=== PATIENT | male | born 1960 | race Caucasian/White ===

== ENCOUNTER 2021-07-13 04:15 | Outpatient (CLI) | payer MEDICAID, SELFPAY | END 2021-07-13 04:16 | disposition home or self-care (01) | LOC: RT 04:15 | PROVIDERS: PCP Physician Assistant Medical; Visit Provider Physician Assistant Medical | DX: R06.00 Dyspnea, unspecified (principal); Z57.2 Occupational exposure to dust; E66.9 Obesity, unspecified; J44.9 Chronic obstructive pulmonary disease, unspecified; R94.2 Abnormal results of pulmonary function studies | CPT/HCPCS: 94060; 94726; 94729 ==

== ENCOUNTER 2023-10-02 12:07 | Outpatient (REF) | payer OTHER, SELFPAY | END 2023-10-02 12:08 | disposition home or self-care (01) | LOC: LBN 12:07 | PROVIDERS: PCP Physician Assistant Medical; Visit Provider Urology | DX: R35.0 Frequency of micturition (principal); N40.0 Benign prostatic hyperplasia without lower urinary tract symptoms | CPT/HCPCS: 87077; 87086; 87186 ==

== ENCOUNTER 2023-10-06 05:54 | Day surgery (SDC) | payer OTHER, SELFPAY ==
[2023-10-06] VITALS (10 sets, daily range): BP systolic 107–152; BP diastolic 55–79; PULSE 79–93; RESP 14–22; TEMP 36.5–36.7; O2SAT 88–95; BMI 28.0
[2023-10-06] MEDS: Lactated Ringers 1,000 ML 30 ML IV (06:46)
--- NOTE | 2023-10-06 07:12 | ANES.PREOP_ITS ---
General Info Date of Service Date Performed: 10/06/23 Height: 5 ft 6 in Weight: 78.9 kg Body Mass Index (BMI): 28.0 Surgical Procedure: Operation Date: 10/06/23 07:40 Proposed Procedure Side Surgeon p Flexible Bronchoscopy w/BAL, Possible Endo Bronchial Biopsy Callie Cedillo MD Pre-Op Diagnosis Post-Op Diagnosis (1) COPD (chronic obstructive pulmonary disease): (2) Respiratory failure with hypoxia: (3) Nicotine dependence, cigarettes, uncomplicated: (4) Collapse of right lung: Meds Allergies and Home Medications Allergies Allergy/AdvReac Type Severity Reaction Status Date / Time sulfamethoxazole AdvReac Intermediate tongue Verified 10/06/23 06:26 [From Bactrim] swelling trimethoprim [From Bactrim] AdvReac Intermediate tongue Verified 10/06/23 06:26 swelling Home Medication Medication Instructions Recorded albuterol sulfate 90 mcg/actuation 2 puff inhalation 6XD 06/28/21 aerosol inhaler (ProAir HFA) amlodipine 10 mg tablet 10 mg PO DAILY 06/28/21 enalapril maleate 20 mg tablet 20 mg PO DAILY 06/28/21 simvastatin 20 mg tablet 20 mg PO DAILY 06/28/21 ipratropium 0.5 mg-albuterol 3 mg 3 ml inhalation Q4H PRN shortness 09/17/21 (2.5 mg base)/3 mL nebulization of breath #180 mL soln budesonide 160 mcg-glycopyr 9 2 inh inhalation BID 09/05/23 mcg-formot 4.8 mcg/actuation HFA inhaler (Breztri Aerosphere) levothyroxine 150 mcg capsule 150 mcg PO DAILY 09/20/23 albuterol sulfate 90 mcg/actuation 2 inh inhalation Q4H PRN 10/02/23 breath activated powder inhaler (ProAir RespiClick) nicotine (polacrilex) 4 mg gum 4 mg buccal Q2H 10/02/23 amoxicillin 500 mg-potassium 1 tab PO BID antibiotic #14 tabs 10/05/23 clavulanate 125 mg tablet (Augmentin) Current Visit Medications: Current Medications Generic Name Dose Route Start Last Admin Trade Name Freq PRN Reason Stop Dose Admin Albuterol/Ipratropium 3 ml 10/06/23 07:09 Albuterol/Ipratropium 3 Ml Upd Vial UPD 11/05/23 07:08 Q2H PRN PRN Ringer's Solution 1,000 mls @ 30 mls/hr 10/06/23 06:00 10/06/23 06:46 IV 11/04/23 23:59 30 mls/hr INFUSION NIRMAL Administration IV Miscellaneous Supplies 1 each 10/06/23 06:00 Iv Access IV 11/04/23 23:59 DIRECTED NIRMAL Sodium Chloride 0 ml 10/06/23 06:00 Normal Saline Flush 10 Ml Syr IV 11/04/23 23:59 PRN PRN Sodium Chloride 0 ml 10/06/23 06:00 Normal Saline 10 Ml Vial IJ 11/04/23 23:59 DIRECTED PRN Sterile Water 0 ml 10/06/23 06:00 Water,Injection,Sterile 10 Ml Vial IJ 11/04/23 23:59 DIRECTED PRN PFSH Active Problems Active Problems: Problem Status Onset Code Bladder wall thickening N32.89 Collapse of right lung J98.11 Nicotine dependence, cigarettes, uncomplicated F17.210 Respiratory failure with hypoxia J96.91 COPD (chronic obstructive pulmonary disease) J44.9 Dyspnea R06.00 Bilateral hearing loss H91.93 Tobacco user Z72.0 Hyperlipidemia E78.5 Medical History Medical History Urinary frequency Enlarged prostate Diverticulitis Lower back injury onset:03/06/2019 Rib injury onset:03/06/2019 Rupture of biceps tendon onset:12/16/2020 COPD (chronic obstructive pulmonary disease) 05/28/2018 Hypertensive disorder 05/11/2018 Hypothyroidism onset:10/23/2019 Surgical History Surgical History S/P rotator cuff repair H/O hernia repair S/P ORIF (open reduction internal fixation) fracture Right arm Tobacco Smoking/Tobacco Use Status: Current every day Tobacco Type: cigarettes Smoking packs per day: 1 Smoking cigarettes per day: 20.0 Alcohol Alcohol Intake: never Substance Use Substance use: Never Substance use type: does not use Vital Signs and Lab Results Vital Signs Most Recent Vital Signs in EMR: Most Recent Vital Signs Temp Pulse Resp BP Pulse Ox 36.6 C 93 H 20 152/76 H 93 10/06/23 06:15 10/06/23 06:15 10/06/23 06:15 10/06/23 06:15 10/06/23 06:15 Lab Results Blood Type / Crossmatch: No Data to Display Complete Blood Count: No Data to Display Complete Metabolic Panel: No Data to Display Liver Function Panel: No Data to Display Coagulation Panel: No Data to Display Cardiac Panel: 2 No Data to Display Arterial Blood Gas: No Data to Display Venous Blood Gas: No Data to Display Pancreas Panel: No Data to Display Thyroid Panel: No Data to Display Infectious Disease: No Data to Display Blood Cultures: No Data to Display Toxicology Panel: No Data to Display Anesthesia Assessment and Plan Anesthesia History Personal History: No History of Anesthesia Complications Family History: No Family History of Anesthesia Complications Exercise Tolerance Exercise Tolerance: Metabolic Equivalents>4 Pertinent Negatives Pertinent Negatives: No Symptoms of GERD Cardiac & Pulmonary Exam Cardiac Exam: Normal S1/S2 Heart Sounds Pulmonary Exam: Wheezing Present Implantable Cardiac Device Does patient have a Pacemaker or an ICD?: No Airway Exam Known Difficult Airway: No Mallampati Class: 2 Mouth Opening: Normal (> 3cm) Thyromental Distance: Greater than 3 cm Neck Range of Motion: Full ROM Neck Circumference: Normal Teeth Condition: Normal Dentition ASA Classification ASA Score: ASA 3 Emergency Case?: No NPO Status NPO Status: NPO Clears >2 hours, Solids >8 hours Anesthesia Plan Resuscitation Status: Full Code Anesthesia Technique: General Anesthesia Airway Planned: Endotracheal Tube Monitors Used: Standard Monitors
[2023-10-06] MEDS: Lidocaine 1% Pres-Free 30 ML VIAL (07:45)
--- NOTE | 2023-10-06 07:52 | PAPNONF_PTH ---
PATIENT: Shahriar Castro LOC: [facility] U#:[id number] AGE/SX: 63/M ROOM: RE10/06/[address]: Callie Cedillo MD : 1960 BED: DIS: 10/06/2023 SPEC #: [id number] RECD: 10/06/23 12:54 STATUS: GEE REQ #: [id number] SALVADOR: 10/06/23 07:[address]: Callie Cedillo DEPT: [facility] Cytology RECD BY: Tracy Coy ENTERED: 10/06/23 12:54 SP TYPE: PAPJANAF ELLIOTT DR: Shannan Anderson Tissues: 1 - BODY FLUID CYTO(NOT S/U/N/EM)[facility] Procedures: BODY FLUID CYTO(NOT SPU/UR/NIP/ENDOM)[facility] Comments: [id number] (TOTAL VOLUME = 20 ml, SENT FRESH) (REFRIGERATED)
--- NOTE | 2023-10-06 08:27 | W.PM.OP ---
Date of service: 10/06/23 Time of Service: 07:30 Operative Note Operative Note Refer to Anesthesia Record Procedure Description: Bronchoscopy Indication:RML collapse Procedure performed: Flexible bronchoscopy with bronchial washings Sedation plan: General Informed consent was obtained after the risks and benefits or the procedure were discussed. Anesthesia sedated and intubated the patient. A proper and complete OR compliant time out was performed. The therapeutic 6.2mm Olympus bronchoscope was inserted through the endotracheal tube. The bronchoscope was inserted into the airways, where 3cc in total of 1% topical lidocaine was used the anesthetize the airways. The trachea was midline and without lesion or injury. The mucosa appeared normal and there were no signs of tracheomalacia. The mars was sharp. All bronchial subsegments were visualized within each lobe and showed normal anatomy. The RML was slightly more erythematous but without lesion, nodule or masses present. On suction of the RML there was complete airways collapse. A bronchoalveolar lavage was attempted in the RML, however after 1 alliquot, with negative pressure for BAL return there was complete airway collapse, so a BAL was deemed to be not possible in this location. As an alternative to this, I performed bronchial washings in the RML with 3 alliquots of 10cc each and collected the fluid in a trap. The bronchoscope was then removed and the case terminated. The patient was taken to PACU in stable condition. Samples collected:Bronchial washings Testing ordered:cell diff, bacterial, fungal, AFB cultures and acytopathology Complications:None Callie Cedillo MD Pulmonary & Critical Care Medicine
--- NOTE | 2023-10-06 10:15 | W.ANESPOSTOP ---
Postoperative Evaluation Date, Time and Location Date Performed: 10/06/23 Time Performed: 10:16 Patient Location: Day Surgery Unit Vital Signs Most Recent Imported Vital Signs: Most Recent Vital Signs Temp Pulse Resp BP Pulse Ox 36.6 C 80 20 121/55 L 95 10/06/23 09:45 10/06/23 09:45 10/06/23 09:45 10/06/23 09:45 10/06/23 09:45 Assessment Mental Status: Awake (Alert & Oriented to Patient Baseline) Airway and Respiratory Function: Abnormal Respiratory exam (See explanation) (baseline) Cardiovascular Function: Hemodynamically Stable Hydration Status: Adequately Hydrated Nausea & Vomiting: No Nausea or Vomiting Pain: Pt. Denies Any Pain Peripheral Nerve Block: Patient did not receive a nerve block
[2023-10-11 09:48] LABS: Eosinophils Fluid Relative 2 %; Lymphocytes Fluid Relative 3 %; Mono/Macrophage Fluid Relative 11 %; Neutrophils Fluid Relative 84 %
[2023-11-16 11:54] LABS: Fungal Culture & Smear See Comments
== END 2023-10-06 10:35 | disposition home or self-care (01) ==
PROVIDERS: PCP Physician Assistant Medical; Visit Provider Student in an Organized Health Care Education/Training Program
PROC: 0BJ08ZZ Inspection of Tracheobronchial Tree, Via Natural or Artificial Opening Endoscopic (ICD-10-PCS; CPT 31622; principal; 2023-10-06 07:30)
DX: J44.9 Chronic obstructive pulmonary disease, unspecified (principal); J98.11 Atelectasis; J96.91 Respiratory failure, unspecified with hypoxia; F17.210 Nicotine dependence, cigarettes, uncomplicated; J84.01 Alveolar proteinosis
CPT/HCPCS: 31622; 80162; 87070; 87102; 87107; 87205; 87206; 88104; J1100; J2250; J2405; J2704; J3010

== ENCOUNTER → 2023-12-26 08:45 | Outpatient (BNVA) | payer MEDICARE, OTHER, SELFPAY | PROVIDERS: PCP Physician Assistant Medical; Referring Provider Physician Assistant Medical; Visit Provider Urology | DX: N39.0 Urinary tract infection, site not specified (principal); N32.89 Other specified disorders of bladder | CPT/HCPCS: 81003; 99213 ==

== ENCOUNTER → 2024-06-03 08:32 | Outpatient (BNVA) | payer MEDICARE, SELFPAY | PROVIDERS: PCP Physician Assistant Medical; Referring Provider Physician Assistant Medical; Visit Provider Physician Assistant Surgical | DX: J44.9 Chronic obstructive pulmonary disease, unspecified (principal); J96.91 Respiratory failure, unspecified with hypoxia; J98.11 Atelectasis; F17.210 Nicotine dependence, cigarettes, uncomplicated | CPT/HCPCS: 99214 ==

== ENCOUNTER → 2024-12-04 08:59 | Outpatient (BNVA) | payer MEDICARE, SELFPAY | PROVIDERS: PCP Physician Assistant Medical; Referring Provider Physician Assistant Medical; Visit Provider Physician Assistant Surgical | DX: J44.9 Chronic obstructive pulmonary disease, unspecified (principal); J96.91 Respiratory failure, unspecified with hypoxia; J98.11 Atelectasis; F17.210 Nicotine dependence, cigarettes, uncomplicated | CPT/HCPCS: 99214 ==